=== PATIENT | male | born 1955 | race Caucasian/White ===

== ENCOUNTER 2017-02-09 06:46 | Emergency (ER) | payer MEDICARE, BC, SELFPAY | END 2017-02-09 08:03 | disposition home or self-care (01) | PROVIDERS: Emergency Provider Emergency Medicine; Family Provider Nurse Practitioner Family; Visit Provider Emergency Medicine | DX: J40 Bronchitis, not specified as acute or chronic (principal); I10 Essential (primary) hypertension; E78.5 Hyperlipidemia, unspecified; E11.9 Type 2 diabetes mellitus without complications; Z79.4 Long term (current) use of insulin; Z79.84 Long term (current) use of oral hypoglycemic drugs; Z79.899 Other long term (current) drug therapy; Z79.51 Long term (current) use of inhaled steroids | CPT/HCPCS: 71020; 87275; 87276; 99282 ==

== ENCOUNTER 2019-08-15 04:34 | Emergency (ER) | payer MEDICARE, MEDICAID, SELFPAY ==
[2019-08-15 04:35] VITALS: BP 156/86; PULSE 91; RESP 17; TEMP 36.9; O2SAT 97; BMI 33.5
--- NOTE | 2019-08-15 05:06 | PC.NURSE ---
pt denies SI at this time. after discussing with house pt doesnt meet requirements to be on a close. pt is kept in room 6 with the curtain open for extra safety precautions.
[2019-08-15 05:13] LABS: POC Glucose,Bedside 116 (70-110)
[2019-08-15 05:16] LABS: Chloride 107 mmol/L (98-107); Sodium 140 mmol/L (136-145)
[2019-08-15 05:17] LABS: Basophils # 0.1 K/mm3 (0-0.2); Basophils % 0.5 % (0.1-2.0); Eosinophils # 0.3 K/mm3 (0.0-0.4); Eosinophils % 2.7 % (0.1-12.0); Hematocrit 43.2 % (42.0-52.0); Hemoglobin 14.9 g/dL (14.1-18.0); Lymphocytes # 2.5 K/mm3 (0.7-4.5); Mean Corpuscular HGB Conc 34.4 g/dL (31.8-35.4); Mean Corpuscular Hemoglobin 31.7 pg (27.0-31.2); Mean Corpuscular Volume 91.9 fl (80-94); Mean Platelet Volume 7.5 fl (7.4-10.4); Monocytes # 0.6 K/mm3 (0.1-1.0); Monocytes % 5.8 % (1.7-9.3); Neutrophils # 6.2 K/mm3 (1.8-7.8); Platelet Count 236 K/mm3 (142-424); Potassium 4.2 mmoL/L (3.5-5.1); Red Cell Distribution Width 13.5 % (11.5-17.5); White Blood Count 9.6 K/mm3 (4.8-10.8)
[2019-08-15 05:19] LABS: Alanine Aminotransferase 25 U/L (12-78); Albumin Level 4.6 g/dl (3.5-5.0); Albumin/Globulin Ratio 1.5 (1.1-1.8); Alkaline Phosphatase 83 U/L (38-126); Anion Gap 14.2 mEq/L (5-15); Aspartate Amino Transferase 27 U/L (17-59); Bilirubin,Total 0.4 mg/dl (0.2-1.3); Blood Urea Nitrogen 38 mg/dl (9-20); Calcium 9.5 mg/dl (8.4-10.2); Carbon Dioxide 23 mmol/L (22.0-30.0); Creatinine Clearance Estimated 70 mL/min (50-200); Estimated Glomerular Filt Rate 41 ml/min (>60); GFR (African American) 50 ML/MIN (>60); Globulin 3.1 g/dL (1.3-3.2); Glucose 131 mg/dl (74-100); Total Protein,Serum 7.7 g/dl (6.3-8.2)
--- NOTE | 2019-08-15 05:19 | PC.NURSE ---
pt states i want to go to [facility] and be evaluated and admitted. i hope they dont turn me away again
[2019-08-15 05:28] LABS: Acetaminophen < 10 ug/ml (10-30); Ethyl Alcohol < 10 mg/dl (0-10); Salicylate < 1.0 mg/dL (2.0-20.0)
[2019-08-15 05:35] VITALS: BP 146/79; PULSE 83; RESP 16; O2SAT 96
[2019-08-15 05:48] LABS: Coronavirus 19 IgG Antibody Negative (Negative); Coronavirus 19 IgM Antibody Negative (Negative)
[2019-08-15 06:12] LABS: Microscopic, Urine URINE MICROSCOPIC (MICROSCOPIC)
--- NOTE | 2019-08-15 06:15 | [facility].EDANX ---
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 Diabetes mellitus complication status: with other specified complication Qualified Code(s): E11.69 - Type 2 diabetes mellitus with other specified complication; Z79.4 - termite treater helper (current) use of insulin Disposition: Home, Self-Care Condition on Discharge: Good Instructions: DI for Anxiety -- Adult Additional Instructions: fluids and see pcp for follow up Referrals: Provider,Referral, MD [Primary Care Provider] - - Critical Care Critical Care Time: No Attestation: On 08/15/19, the high probability of a clinically significant, sudden or life threatening deterioration of the following system(s) required my full and direct attention, intervention and personal management. The time I documented below is in addition to time spent performing reported procedures but includes the following listed in this critical care notation. Medical Decision Making - Medical Records Medical records reviewed: Yes: I reviewed the patient's medical records. - Patel Inquiry Pt receiving controlled substance: No Vital Signs: 08/15/19 04:35 08/15/19 05:35 Temperature 98.5 F Temperature Source Oral Pulse Rate [Left Radial] 91 H 83 Respiratory Rate 17 16 Blood Pressure [Right Arm] 156/86 H 146/79 H Blood Pressure Mean [Right Arm] 109 101 Blood Pressure Source [Right Arm] Automatic Cuff Automatic Cuff Blood Pressure Position [Right Arm] Sitting Sitting 02 Sat by Pulse Oximetry 97 96 Oxygen Delivery Method Room Air Room Air - Lab Data Lab results reviewed: Yes: I reviewed the patient's lab results. Lab Results 08/15/19 05:00: WBC 9.6, RBC 4.70, Hgb 14.9, Hct 43.2, MCV 91.9, MCH 31.7 H, MCHC 34.4, RDW 13.5, Plt Count 236, MPV 7.5, Neut % (Auto) 65.0, Lymph % (Auto) 26.0, [place] % (Auto) 5.8, Eos % (Auto) 2.7, Baso % (Auto) 0.5, Neut # (Auto) 6.2, Lymph # (Auto) 2.5, [place] # (Auto) 0.6, Eos # (Auto) 0.3, Baso # (Auto) 0.1 08/15/19 05:00: Sodium 140, Potassium 4.2, Chloride 107, Carbon Dioxide 23, Anion Gap 14.2, BUN 38 H, Creatinine 1.70 H, Estimated Creat Clear 70, Estimated GFR 41 L, Est GFR ( Amer) 50 L, Glucose 131 H, Calcium 9.5, Total Bilirubin 0.4, AST 27, ALT 25, Alkaline Phosphatase 83, Total Protein 7.7, Albumin 4.6, Globulin 3.1, Albumin/Globulin Ratio 1.5, Salicylates < 1.0 L, Acetaminophen < 10 L 08/15/19 05:00: Plasma/Serum Alcohol < 10 08/15/19 05:00: SARS-CoV-2 IgG Ab (Rapid) Negative, SARS-CoV-2 IgM Ab (Rapid) Negative 08/15/19 05:10: POC Glucose 116 H Result diagrams: 08/15/19 05:00 08/15/19 05:00 Orders (Tests/Meds): ED MEDICATIONS Generic Name Dose Route Start Last Admin Trade Name Freq PRN Reason Stop Dose Admin Sodium Chloride 1,000 mls @ 999 mls/hr 08/15/19 05:30 08/15/19 05:21 Sod Chlor 0.9% 1000ml Bag IV 08/15/19 06:30 999 mls/hr .[id number] SONI Administration ORDERS Category Date Time Status UDS [Drug Screen,Urine] Stat Lab 08/15/19 06:07 Received Urinalysis and Microscopic Stat Lab 08/15/19 06:07 Received Anxiety HPI - General Chief Complaint: Psychiatric Symptoms Stated Complaint: SOA;light headed Time Seen by Provider: 08/15/19 05:00 Mode of Arrival: Wheelchair Source of Information: Patient, Medical Record Limitations: No Limitations Description of Symptoms (Recalled from ER Triage Doc. by RN): pt stated he brought himself to the hospital because his blood sugar was low and he felt like he was going to passout earlier this morning before coming to hospital. pt stated his glucose level resolved at home. On assessment pt stated im in bad shape and need to be admited. My Dr. says im not ready for a fci yet. then once i leave here i need to go to [facility]. my meds arent right and i dont want to hurt anyone. pt denies SI at this time but stated he sometimes th
[2019-08-15 06:18] LABS: Appearance,Urine CLEAR (Clear); Bilirubin,Urine Negative (Negative); Blood, Urine TRACE-L (Negative); Color,Urine YELLOW (Yellow); Glucose,Urine (UA) 3+ (Negative); Ketones,Urine Negative (Negative); Leukocyte Esterase,Urine Negative (Negative); Nitrate,Urine Negative (Negative); PH,Urine 5.5 (5.0-8.5); Protein,Urine TRACE (Negative); Specific Gravity, Urine 1.025 (1.005-1.030); Urobilinogen,Urine 0.2 EU/dl (0.2)
[2019-08-15 06:32] LABS: Amphetamine/Metha Screen,Urine Negative ng/ml (<1000); Barbiturates Screen,Urine Negative ng/ml (<200)
[2019-08-15 06:33] LABS: Benzodiazepines Screen,Urine Negative ng/ml (<200)
[2019-08-15 06:34] LABS: Cannabinoid Screen,Urine Negative ng/ml (<50); Cocaine Screen,Urine Negative ng/ml (<300)
[2019-08-15 06:35] VITALS: BP 142/73; PULSE 81; RESP 16; TEMP 36.9; O2SAT 97
[2019-08-15 06:35] LABS: Methadone Screen,Urine Negative ng/ml (<300); Opiate Screen,Urine Negative ng/ml (<300)
[2019-08-15 06:36] LABS: Phencyclidine Screen,Urine Negative ng/ml (<25)
[2019-08-15 06:37] LABS: WBC,Urine Occasional #/hpf (0-3)
[2019-08-15 06:38] LABS: Squamous Epithelial Cell,Urine Occasional #/hpf (0-5)
== END 2019-08-15 06:46 | disposition home or self-care (01) ==
PROVIDERS: Emergency Provider Emergency Medicine
DX: F41.0 Panic disorder [episodic paroxysmal anxiety] (principal); N28.9 Disorder of kidney and ureter, unspecified; E11.65 Type 2 diabetes mellitus with hyperglycemia; Z79.4 Long term (current) use of insulin; Z88.8 Allergy status to other drugs, medicaments and biological substances; Z79.899 Other long term (current) drug therapy
CPT/HCPCS: 80053; 80305; 80329; 81001; 82962; 85025; 86328; 96365; 99283